=== PATIENT | female | born 1960 | race African-American/Black ===

== ENCOUNTER → 2021-10-27 | Day surgery (SDC) | payer MEDICARE, MEDICAID ==
[~2021-10-27] VITALS: Ht 175.3 cm; Wt 144.2 kg
[~2021-10-27] MED LIST: AMLO10TA80 MT; ASPI-1497 MT; ATEN50TA MT; ATOR40TA70 MT; CLOP75TA33 MT; DIPHENHYDRAMINE 50MG/ML VIAL ONE; FAMOTIDINE 20MG/2ML VIAL IV ONE; FENTANYL CITRATE/PF 50MCG/ML 2ML VIAL ONE; HEPARIN SODIUM 1,000 UNIT/1ML VIAL IV ONE; HYDR25TA MT; IBUP-2029 PO; IODIXANOL 320MG/ML 100 ML BOTTLE IV ONE; LOSA100T32 MT; METHYLPREDNISOLONE SOD SUCC 125 MG/2 ML VIAL ONE; MIDAZOLAM HCL 2 MG/2 ML VIAL ONE; NICARDIPINE 100MCG/ML 10ML VIAL (CATH LAB) IV ONE; NITROGLYCERIN 50MCG/ML 10ML VIAL (CATH LAB) IV ONE
== END | disposition home or self-care (01) ==
LOC: CCL 10:10
PROVIDERS: ATTEND Specialist
DX: R94.39 Abnormal result of other cardiovascular function study (principal); I25.10 Atherosclerotic heart disease of native coronary artery without angina pectoris; I10 Essential (primary) hypertension; E78.5 Hyperlipidemia, unspecified; Z79.899 Other long term (current) drug therapy; Z98.890 Other specified postprocedural states; Z20.822 Contact with and (suspected) exposure to COVID-19
CPT/HCPCS: 87426; 93454; C1769; C1887; C1893; C9803; J1200; J1644; J2250; J2930; J3010; J3490; Q9967